=== PATIENT | female | born 1995 | race Caucasian/White ===

== ENCOUNTER 2017-12-04 00:51 | Emergency (ER) | payer OTHER ==
[2017-12-04 02:28] VITALS: BMI 26.6
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
[2017-12-04] MEDS ORDERED: ACETAMINOPHEN 1000 MG/100 ML VIAL (NON FORMULARY) IVPB ONE (02:50)
[2017-12-04] MEDS ORDERED: ACETAMINOPHEN 325 MG TABLET (FP) ONE (03:03)
[2017-12-04] MEDS ORDERED: ACETAMINOPHEN 500 MG TABLET (FP) PO ONE (03:08)
[2017-12-04] MEDS ORDERED: DIPHTH,PERTUSS(ACELL),TET 0.5 ML DISP.SYRIN IM ONE (03:12)
[2017-12-04] MEDS ORDERED: CLINDAMYCIN 900 MG PREMIX IVPB 900 MG/50 ML BAG IVPB ONE ×2 (03:28→03:51)
[2017-12-04 03:55] LABS: BASO % 0.3 % (0-2.0); EOS % 0.6 % (0-4.5); HEMATOCRIT 35.8 % (32.4-45.2); HEMOGLOBIN 11.8 GM/dL (10.7-15.3); LYMPH % 25.6 % (8-40); MCH 26.9 pg (25.7-33.7); MEAN CELL VOLUME 81.6 fl (80-96); MEAN PLT VOLUME 7.8 fl (7.5-11.1); MONO % 8.3 % (3.8-10.2); NEUT % 65.2 % (42.8-82.8); PLATELET COUNT 287 K/MM3 (134-434); RBC 4.39 M/mm3 (3.60-5.2); RDW 14.3 % (11.6-15.6); WHITE BLOOD COUNT 9.7 K/mm3 (4.0-10.0)
[2017-12-04 04:33] LABS: ALBUMIN 3.6 g/dl (3.4-5.0); ALK PHOS 75 U/L (45-117); ANION GAP 12 (8-16); BILIRUBIN,TOTAL 0.2 mg/dL (0.2-1.0); BLOOD UREA NITROGEN 7 mg/dL (7-18); CALCIUM 8.8 mg/dL (8.5-10.1); CHLORIDE 104 mmol/L (98-107); CO2 26 mmol/L (21-32); CREATININE 0.6 mg/dL (0.55-1.02); GLUCOSE,RANDOM 85 mg/dL (74-106); POTASSIUM 3.5 mmol/L (3.5-5.1); SGOT/AST 21 U/L (15-37); SGPT/ALT 28 U/L (12-78); SODIUM 142 mmol/L (136-145); TOT PROT 6.9 g/dl (6.4-8.2)
[2017-12-04] MEDS ORDERED: morphine CARPU-JECT 4 MG/1 ML DISP.SYRIN IVPUSH ONE (05:06)
[2017-12-04] MEDS ORDERED: LIDOCAINE HCL 1%, 10 MG/ML (20ML VIAL) ONE (05:07)
[2017-12-04] MEDS ORDERED: morphine SULFATE 4 MG/ML VIAL ONE (05:08)
[2017-12-04] MEDS ORDERED: MIDAZOLAM HCL 2 MG/2 ML SINGLE DOSE VIAL IVPUSH ONE (06:12)
[2017-12-04] MEDS ORDERED: MIDAZOLAM HCL 2 MG/2 ML SINGLE DOSE VIAL ONE ×3 (06:15→06:44)
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
[2017-12-04] MEDS ORDERED: KETAMINE HCL 200 MG/20 ML VIAL ONE (06:55)
[2017-12-04 07:15] VITALS: TEMP 2
[2017-12-04] MEDS ORDERED: MIDAZOLAM HCL 10 MG/10 ML VIAL IVPUSH ONE (07:42)
[2017-12-04] MEDS ORDERED: KETAMINE HCL 500 MG/10 ML VIAL IV ONE (07:42)
[2017-12-04 09:05] VITALS: BP 109/67; PULSE 79
== END 2017-12-04 09:05 | disposition home or self-care (01) ==
LOC: JER 00:51
PROC: 0HQ2XZZ Repair Right Ear Skin, External Approach (ICD-10-PCS; principal; 2017-12-04)
PROC: 3E0234Z Introduction of Serum, Toxoid and Vaccine into Muscle, Percutaneous Approach (ICD-10-PCS; 2017-12-04)
PROC: 3E03329 Introduction of Other Anti-infective into Peripheral Vein, Percutaneous Approach (ICD-10-PCS; 2017-12-04)
PROC: 3E033NZ Introduction of Analgesics, Hypnotics, Sedatives into Peripheral Vein, Percutaneous Approach (ICD-10-PCS; 2017-12-04)
PROC: 3E033NZ Introduction of Analgesics, Hypnotics, Sedatives into Peripheral Vein, Percutaneous Approach (ICD-10-PCS; 2017-12-04)
PROC: 3E033GC Introduction of Other Therapeutic Substance into Peripheral Vein, Percutaneous Approach (ICD-10-PCS; 2017-12-04)
PROC: 3E033GC Introduction of Other Therapeutic Substance into Peripheral Vein, Percutaneous Approach (ICD-10-PCS; 2017-12-04)
DX: S01.311A Laceration without foreign body of right ear, initial encounter (principal); G44.309 Post-traumatic headache, unspecified, not intractable; W51.XXXA Accidental striking against or bumped into by another person, initial encounter; W22.8XXA Striking against or struck by other objects, initial encounter; Y93.89 Activity, other specified; Y92.59 Other trade areas as the place of occurrence of the external cause; Y99.8 Other external cause status
CPT/HCPCS: 12013; 36415; 70450-TC; 70486-TC; 80053; 84703; 85025; 90471; 90715; 96365; 96372; 96375; 99283-25

== ENCOUNTER 2017-12-25 15:52 | Inpatient (IN) | payer OTHER ==
[2017-12-25 16:33] VITALS: BMI 31.5
--- NOTE | 2017-12-25 19:41 | HP ---
COWS - Scale Resting Pulse: 1= [place] 81-100 Sweatin= Chills/Flushing Restless Observation: 1= Difficult to Sit Still Pupil Size: 0= Normal to Room Light Bone or Joint Aches: 1= Mild Discomfort Runny Nose/ Eye Tearin= Constantly Teary/Runny GI Upset > 30mins: 2= Nausea/Diarrhea Tremor Observation: 1= Tremor [place], Not Seen Yawning Observation: 0= None Anxiety or Irritability: 0= None Goose Flesh Skin: 3=Piloerection COWS Score: 14 Admission [facility] - HPI Chief Complaint: Opioid withdrawal symptoms "I am here to detox from oxys " Allergies/Adverse Reactions: Allergies Allergy/AdvReac Type Severity Reaction Status Date / Time shellfish derived Allergy Swelling Verified 12/25/17 19:22 History of Present Illness: 22 yo female with hx of nicotine, opioid, and marijuana dependence is here seeking detox. PMHX: asthma, stitches on right ear injury, anxiety, insomnia. Denies suicidal / homicidal ideation or suicide attempts. Reports no prior detox treatment and this is her first time seeking assistance. Reports no significant period of sobriety. Denies hx of seizures or black outs. - Ebola screening Have you traveled outside of the country in the last 21 days: No Have you had contact with anyone from an Ebola affected area: No Have you been sick,other than usual withdrawal symptoms: No Do you have a fever: No - Review of Systems Constitutional: Chills, Loss of Appetite, Changes in sleep, Weakness, Unintentional Wgt. Loss (20 lbs loss over the past two months) EENT: reports: No Symptoms Reported Respiratory: reports: No Symptoms reported Cardiac: reports: No Symptoms Reported GI: reports: Diarrhea (Bm x 4 today), Nausea, Poor Appetite, Poor Fluid Intake, Abdominal cramping : reports: No Symptoms Reported Musculoskeletal: reports: Back Pain, Joint Pain Integumentary: reports: No Symptoms Reported Endocrine: reports: Excessive Sweating, Increased Thirst Hematology: reports: No Symptoms Reported Psychiatric: reports: Orientated x3, Anxious Other Systems: Reviewed and Negative Patient History - Patient Medical History Hx Anemia: No Hx Asthma: Yes Hx Chronic Obstructive Pulmonary Disease (COPD): No Hx Cancer: No Hx Cardiac Disorders: Yes (heart murmur as a child) Hx Congestive Heart Failure: No Hx Hypertension: No Hx Hypercholesterolemia: No Hx Pacemaker: No HX Cerebrovascular Accident: No Hx Seizures: No Hx Dementia: No Hx Diabetes: No Hx Gastrointestinal Disorders: No Hx Liver Disease: No Hx Genitourinary Disorders: No Hx Sexually Transmitted Disorders: No Hx Renal Disease (ESRD): No Hx Thyroid Disease: No Hx Human Immunodeficiency Virus (HIV): No Hx Hepatitis C: No Hx Depression: No Hx Suicide Attempt: No Hx Bipolar Disorder: No Hx Schizophrenia: No - Patient Surgical History Past Surgical History: Yes Hx Neurologic Surgery: No Hx Cataract Extraction: No Hx Cardiac Surgery: No Hx Lung Surgery: No Hx Breast Surgery: No Hx Breast Biopsy: No Hx Abdominal Surgery: No Hx Appendectomy: Yes Hx Cholecystectomy: No Hx Genitourinary Surgery: No Hx Section: No Hx Orthopedic Surgery: No Anesthesia Reaction: No - PPD History Previous Implant?: Yes Documented Results: Negative w/o proof Implanted On Prior R Admission?: No PPD to be Administered?: Yes - Reproductive History Patient is a Female of Child Bearing Age (11 -55 yrs old): Yes Last Menstrual Period: 11/27/17 Patient : No - Smoking Cessation Smoking history: Current every day smoker Have you smoked in the past 12 months: Yes Aproximately how many cigarettes per day: 10 Hx Chewing Tobacco Use: No Initiated information on smoking cessation: Yes 'Breaking Loose' booklet given: 12/25/17 - Substance & Tx. History Hx Alcohol Use: No Hx Substance Use: Yes Substance Use Type: Marijuana, Opiates Hx Substance Use Treatment: No - Substances Abused Oxycodone Route: Oral Frequency: Daily Amount used: 20 tabs. (30 mg.) Age of first use: 21 Date of Last Use: 12/25/17 Marijuana Route: Smoking Frequency: 1-2 times per week Amount used: $10 Age of first use: 15 Date of Last Use: 12/24/17 Family Disease History - Family Disease History Family Disease History: Heart Disease: Father (alive, HTN), Other: Father, Mother (alive and well) Admission Physical Exam BHS - Vital Signs Vital Signs: Vital Signs - 24 hr 12/25/17 16:31 Temperature 98.9 F Pulse Rate 88 Respiratory 18 Rate Blood Pressure 137/87 - Physical General Appearance: Yes: Appropriately Dressed, Obese, Sweating, Anxious HEENTM: Yes: EOMI, Hearing grossly Normal, Normal ENT Inspection, Normocephalic , Normal Voice, CHAD, Pharynx Normal, Tm's normal Respiratory: Yes: Chest Non-Tender, Lungs Clear, Normal Breath Sounds, No Respiratory Distress, No Accessory Muscle Use Neck: Yes: No masses,lesions,Nodules, Trachea in good position Breast: Yes: Breast Exam Deferred Cardiology: Yes: Regular Rhythm, Regular Rate, Murmur Abdominal: Yes: Normal Bowel Sounds, Non Tender, Flat, Soft Genitourinary: Yes: Within Normal Limits Back: Yes: Normal Inspection Musculoskeletal: Yes: full range of Motion, Gait Steady, Pelvis Stable, Back pain Extremities: Yes: Normal Capillary Refill, Normal Inspection, Normal Range of Motion, Non-Tender Neurological: Yes: leather case finisher II-XII NML intact, Fully Oriented, Alert, Motor Strength 5/5, Depressed Affect Integumentary: Yes: Normal Color, Warm, Diaphoresis Lymphatic: Yes: Within Normal Limits - Diagnostic (1) Back pain Current Visit: Yes Status: Acute Qualifiers: Back pain location: low back pain Chronicity: acute Back pain laterality : midline (2) Opioid dependence with withdrawal Current Visit: Yes Status: Acute (3) Marijuana dependence Current Visit: Yes Status: Acute (4) Obesity (BMI 30.0-34.9) Current Visit: Yes Status: Chronic (5) Nicotine dependence Current Visit: Yes Status: Acute Qualifiers: Nicotine product type: cigarettes (6) Murmur Current Visit: Yes Status: Chronic (7) Laceration of right ear Current Visit: No Status: Acute Qualifiers: Encounter type: subsequent encounter Qualified Code(s): S01.311D - Laceration without foreign body of right ear, subsequent encounter Cleared for Admission [facility] - Detox or Rehab [facility] Level of Care: Medically Managed Detox Regimen/Protocol: Methadone [facility] Breath Alcohol Content Breath Alcohol Content: 0 Urine Pregancy Test - Result Urine Test Results: Negative- NO Line Present Urine Drug Screen - Results Drug Screen Negative: No Urine Drug Screen Results: THC-Marijuana, SHAHEEN-Cocaine, OXY-Oxycodone
[2017-12-25] MEDS ORDERED: MENTHOL/PHENOL 1 EACH UD MM PRN (19:46)
[2017-12-25] MEDS ORDERED: MAGNESIUM HYDROX 2400MG/30ML ORAL SUSPENSION 30 ML CUP PO PRN (19:46)
[2017-12-25] MEDS ORDERED: MAGNESIUM CITRATE 300 ML BOTTLE PO PRN (19:46)
[2017-12-25] MEDS ORDERED: P-EPHED 60MG/TRIPROLIDI 2.5MG TABLET PO PRN (19:46)
[2017-12-25] MEDS ORDERED: METHADONE HCL 10 MG TABLET (FOR DETOX USE ONLY) PO ONE ×2 (19:46→23:00)
[2017-12-25] MEDS ORDERED: ALBUTEROL SO4 18 GM HFA INHALER IH PRN (19:46)
[2017-12-25] MEDS ORDERED: LOPERAMIDE HCL 2 MG CAPSULE PO PRN (19:46)
[2017-12-25] MEDS ORDERED: guaiFENesin/D-METHORPHAN HB 10 ML UNIT-DOSE CUPS PO PRN (19:46)
[2017-12-25] MEDS ORDERED: MAG HYDROX/AL HYDROX/SIMETH 30 ML UNIT-DOSE CUP PO PRN (19:46)
[2017-12-25] MEDS ORDERED: ALBUTEROL SO4 2.5/IPRATROPIUM 0.5 INH SOL 3 ML VIAL.NEB. NEB PRN (19:49)
[2017-12-25] MEDS: diazePAM 5 MG TABLET PO PRN (20:50)
[2017-12-25] MEDS: MELATONIN 5 MG TABLETS PO PRN (22:24)
[2017-12-25] MEDS: THIAMINE HCL 100 MG TABLET (FP) PO SCH (22:24)
[2017-12-26] MEDS: diazePAM 5 MG TABLET PO PRN ×4 (01:27→19:54)
[2017-12-26 09:57] LABS: HEMATOCRIT 35.7 % (32.4-45.2); HEMOGLOBIN 11.6 GM/dL (10.7-15.3); MCH 26.9 pg (25.7-33.7); MCHC 32.6 g/dl (32.0-36.0); MEAN CELL VOLUME 82.5 fl (80-96); MEAN PLT VOLUME 8.5 fl (7.5-11.1); PLATELET COUNT 277 K/MM3 (134-434); RBC 4.32 M/mm3 (3.60-5.2); RDW 14.6 % (11.6-15.6); WHITE BLOOD COUNT 8.4 K/mm3 (4.0-10.0)
[2017-12-26] MEDS ORDERED: METHADONE HCL 10 MG TABLET (FOR DETOX USE ONLY) PO ONE (10:00)
[2017-12-26 10:09] LABS: ALBUMIN 3.4 g/dl (3.4-5.0); ANION GAP 7 (8-16); BLOOD UREA NITROGEN 8 mg/dL (7-18); CALCIUM 8.6 mg/dL (8.5-10.1); CHLORIDE 108 mmol/L (98-107); CO2 27 mmol/L (21-32); CREATININE 0.6 mg/dL (0.55-1.02); GLUCOSE,RANDOM 80 mg/dL (74-106); POTASSIUM 3.9 mmol/L (3.5-5.1); SGOT/AST 14 U/L (15-37); SGPT/ALT 28 U/L (12-78); SODIUM 142 mmol/L (136-145)
[2017-12-26 10:11] LABS: ALK PHOS 71 U/L (45-117); BILIRUBIN,TOTAL 0.5 mg/dL (0.2-1.0); TOT PROT 6.6 g/dl (6.4-8.2)
--- NOTE | 2017-12-26 10:14 | EKG ---
Test Reason : Blood Pressure : / mmHG Vent. Rate : 068 BPM Atrial Rate : 068 BPM P-R Int : 152 ms QRS Dur : 090 ms QT Int : 376 ms P-R-T Axes : 047 055 017 degrees QTc Int : 399 ms NORMAL SINUS RHYTHM NORMAL ECG WHEN COMPARED WITH ECG OF 25-DEC-2017 20:53, NO SIGNIFICANT CHANGE WAS FOUND Confirmed by Diony Martinez MD ([id number]) on 12/26/2017 10:13:46 AM Referred By: Confirmed By:Diony Martinez MD
--- NOTE | 2017-12-26 10:14 | EKG ---
Test Reason : Blood Pressure : / mmHG Vent. Rate : 082 BPM Atrial Rate : 082 BPM P-R Int : 158 ms QRS Dur : 082 ms QT Int : 360 ms P-R-T Axes : 058 055 010 degrees QTc Int : 420 ms NORMAL SINUS RHYTHM NONSPECIFIC T WAVE ABNORMALITY ABNORMAL ECG NO PREVIOUS ECGS AVAILABLE Confirmed by Diony Martinez MD ([id number]) on 12/26/2017 10:14:23 AM Referred By: Confirmed By:Diony Martinez MD
[2017-12-26] MEDS: PRENATAL VITAMINS W/ FOLIC ACID TABLET (FP) PO SCH (10:37)
[2017-12-26] MEDS: NICOTINE 14 MG/24 HOURS TOPICAL PATCH TD SCH (10:38)
--- NOTE | 2017-12-26 11:40 | CONSULT ---
[facility] - Data Date of interview: 12/26/17 [facility] Identifying data: Pt. is a 22 year old single female, without kids, unemployed and currently living with boyfriend. This is patient's first admission to detox. Pt. admitted to [facility] for opioid dependence. Substance Abuse History: Following information confirmed with Ms. Yuly Torres: - Smoking Cessation. Smoking history: Current every day smoker. Have you smoked in the past 12 months: Yes. Aproximately how many cigarettes per day: 10. Hx Chewing Tobacco Use: No. Initiated information on smoking cessation: Yes. ' Breaking Loose' booklet given: 12/25/17. - Substance & Tx. History. Hx Alcohol Use: No. Hx Substance Use: Yes. Substance Use Type: Marijuana, Opiates. Hx Substance Use Treatment: No. - Substances Abused. Oxycodone. Route: Oral. Frequency: Daily. Amount used: 20 tabs. (30 mg.). Age of first use: 21. Date of Last Use: 12/25/17. Marijuana. Route: Smoking. Frequency : 1-2 times per week. Amount used: $10. Age of first use: 15. Date of Last Use: 12/24/17 Medical History: Appendectomy, Heart Murmur as a child, Asthma Psychiatric History: Pt. denies h/o psychiatric hospitalization, outpatient care and suicide attempt. Physical/Sexual Abuse/Trauma History: Denies. Mental Status Exam - Mental Status Exam Alert and Oriented to: Time, Place, Person Cognitive Function: Good Patient Appearance: Well Groomed Mood: Withdrawn, Euthymic Affect: Mood Congruent Patient Behavior: Fatigued, Cooperative Speech Pattern: Appropriate Voice Loudness: Normal Thought Process: Goal Oriented Thought Disorder: Not Present Hallucinations: Denies Suicidal Ideation: Denies Homicidal Ideation: Denies Insight/Judgement: Poor Sleep: Poorly Appetite: Fair Muscle strength/Tone: Normal Gait/Station: Normal Psychiatric Findings - Problem List (Flatgap 1, 2,3) (1) Insomnia Current Visit: Yes Status: Acute (2) Marijuana dependence Current Visit: Yes Status: Acute (3) Nicotine dependence Current Visit: Yes Status: Acute Qualifiers: Nicotine product type: cigarettes (4) Opioid dependence with withdrawal Current Visit: Yes Status: Acute - Initial Treatment Plan Initial Treatment Plan: Psychoeducation provided. Detoxification in progress. Geovannyryl 50mg prn for insomnia ordered. Benefits and side effects discussed. Verbal consent given. Will continue to monitor patient.
--- NOTE | 2017-12-26 14:04 | PN ---
S COWS - Scale Resting Pulse: 0= [place] 80 or Below Sweatin= Chills/Flushing Restless Observation: 3= Extraneous Movement Pupil Size: 1= Pupils >than Normal Bone or Joint Aches: 2= Severe Diffuse Aches Runny Nose/ Eye Tearin= Runny Nose/Eyes GI Upset > 30mins: 2= Nausea/Diarrhea Tremor Observation of Outstretched Hands: 2= Slight Tremor Visible Yawning Observation: 2= >3x During Session Anxiety or Irritability: 2=Irritable/Anxious Goose Flesh Skin: 0=Smooth Skin COWS Score: 17 S Progress Note (SOAP) Subjective: ALERT,IRRITABLE,ANXIOUS,INTERRUPTED SLEEP,TREMOR,PAIN IN THE BODY AND BACK Objective: 12/26/17 14:03 Vital Signs Temperature 97.7 F 12/26/17 11:57 Pulse Rate 72 12/26/17 11:57 Respiratory Rate 20 12/26/17 11:57 Blood Pressure 121/67 12/26/17 11:57 O2 Sat by Pulse Oximetry (%) EKG NSR,NORMAL ECG Laboratory Last Values WBC 8.4 K/mm3 (4.0-10.0) 12/26/17 08:00 RBC 4.32 M/mm3 (3.60-5.2) 12/26/17 08:00 Hgb 11.6 GM/dL (10.7-15.3) 12/26/17 08:00 Hct 35.7 % (32.4-45.2) 12/26/17 08:00 MCV 82.5 fl (80-96) 12/26/17 08:00 MCH 26.9 pg (25.7-33.7) 12/26/17 08:00 MCHC 32.6 g/dl (32.0-36.0) 12/26/17 08:00 RDW 14.6 % (11.6-15.6) 12/26/17 08:00 Plt Count 277 K/MM3 (134-434) 12/26/17 08:00 MPV 8.5 fl (7.5-11.1) 12/26/17 08:00 Sodium 142 mmol/L (136-145) 12/26/17 08:00 Potassium 3.9 mmol/L (3.5-5.1) 12/26/17 08:00 Chloride 108 mmol/L (98-107) H 12/26/17 08:00 Carbon Dioxide 27 mmol/L (21-32) 12/26/17 08:00 Anion Gap 7 (8-16) L 12/26/17 08:00 BUN 8 mg/dL (7-18) 12/26/17 08:00 Creatinine 0.6 mg/dL (0.55-1.02) 12/26/17 08:00 Creat Clearance w eGFR > 60 (>60) 12/26/17 08:00 Random Glucose 80 mg/dL (74-106) 12/26/17 08:00 Calcium 8.6 mg/dL (8.5-10.1) 12/26/17 08:00 Total Bilirubin 0.5 mg/dL (0.2-1.0) D 12/26/17 08:00 AST 14 U/L (15-37) L 12/26/17 08:00 ALT 28 U/L (12-78) 12/26/17 08:00 Alkaline Phosphatase 71 U/L (45-117) 12/26/17 08:00 Total Protein 6.6 g/dl (6.4-8.2) 12/26/17 08:00 Albumin 3.4 g/dl (3.4-5.0) 12/26/17 08:00 HIV 1&2 Antibody Screen Negative 12/26/17 09:00 HIV P24 Antigen Negative 12/26/17 09:00 12/26/17 14:04 RPR PENDING Assessment: 12/26/17 14:04 WITHDRAWAL SYMPTOM Plan: CONTINUE DETOX
[2017-12-26 18:21] LABS: URINE APPEARANCE TURBID; URINE BILIRUBIN NEGATIVE (<2.0 mg/dL); URINE BLOOD NEGATIVE (NEGATIVE); URINE COLOR YELLOW; URINE GLUCOSE (UA) NEGATIVE (NEGATIVE); URINE KETONE TRACE (NEGATIVE); URINE NITRITE NEGATIVE (NEGATIVE); URINE PROTEIN NEGATIVE (NEGATIVE)
[2017-12-26 18:25] LABS: URINE LEUK ESTERASE 1+ (NEGATIVE)
[2017-12-26 19:16] LABS: CALCIUM OXALATE CRYSTALS MODERATE /hpf (NONE SEEN); EPI CELLS FEW /HPF (FEW); URINE MUCUS MANY
[2017-12-26] MEDS ORDERED: diphenhydrAMINE HCL 50 MG CAPSULE PO PRN (22:00)
[2017-12-26] MEDS: hydrOXYzine PAMOATE 50 MG CAPSULE (FP) PO PRN (22:35)
[2017-12-26] MEDS: THIAMINE HCL 100 MG TABLET (FP) PO SCH (22:35)
[2017-12-26] MEDS: MELATONIN 5 MG TABLETS PO PRN (22:36)
[2017-12-27] MEDS ORDERED: METHADONE HCL 5 MG TABLET (FOR DETOX USE ONLY) PO ONE (10:00)
[2017-12-27] MEDS: PRENATAL VITAMINS W/ FOLIC ACID TABLET (FP) PO SCH (10:16)
[2017-12-27] MEDS: NICOTINE 14 MG/24 HOURS TOPICAL PATCH TD SCH (10:19)
--- NOTE | 2017-12-27 11:43 | PN ---
BHS COWS - Scale Resting Pulse: 0= [place] 80 or Below Sweatin= Chills/Flushing Restless Observation: 1= Difficult to Sit Still Pupil Size: 1= Pupils >than Normal Bone or Joint Aches: 2= Severe Diffuse Aches Runny Nose/ Eye Tearin= Nasal Congestion GI Upset > 30mins: 2= Nausea/Diarrhea Tremor Observation of Outstretched Hands: 2= Slight Tremor Visible Yawning Observation: 2= >3x During Session Anxiety or Irritability: 2=Irritable/Anxious Goose Flesh Skin: 0=Smooth Skin COWS Score: 14 BHS Progress Note (SOAP) Subjective: sweat tremor body ache restlessness anxiety irritable Objective: 12/27/17 11:40 Vital Signs Temperature 98.1 F 12/27/17 09:38 Pulse Rate 76 12/27/17 09:38 Respiratory Rate 18 12/27/17 09:38 Blood Pressure 105/54 12/27/17 09:38 O2 Sat by Pulse Oximetry (%) Laboratory Last Values WBC 8.4 K/mm3 (4.0-10.0) 12/26/17 08:00 RBC 4.32 M/mm3 (3.60-5.2) 12/26/17 08:00 Hgb 11.6 GM/dL (10.7-15.3) 12/26/17 08:00 Hct 35.7 % (32.4-45.2) 12/26/17 08:00 MCV 82.5 fl (80-96) 12/26/17 08:00 MCH 26.9 pg (25.7-33.7) 12/26/17 08:00 MCHC 32.6 g/dl (32.0-36.0) 12/26/17 08:00 RDW 14.6 % (11.6-15.6) 12/26/17 08:00 Plt Count 277 K/MM3 (134-434) 12/26/17 08:00 MPV 8.5 fl (7.5-11.1) 12/26/17 08:00 Sodium 142 mmol/L (136-145) 12/26/17 08:00 Potassium 3.9 mmol/L (3.5-5.1) 12/26/17 08:00 Chloride 108 mmol/L (98-107) H 12/26/17 08:00 Carbon Dioxide 27 mmol/L (21-32) 12/26/17 08:00 Anion Gap 7 (8-16) L 12/26/17 08:00 BUN 8 mg/dL (7-18) 12/26/17 08:00 Creatinine 0.6 mg/dL (0.55-1.02) 12/26/17 08:00 Creat Clearance w eGFR > 60 (>60) 12/26/17 08:00 Random Glucose 80 mg/dL (74-106) 12/26/17 08:00 Calcium 8.6 mg/dL (8.5-10.1) 12/26/17 08:00 Total Bilirubin 0.5 mg/dL (0.2-1.0) D 12/26/17 08:00 AST 14 U/L (15-37) L 12/26/17 08:00 ALT 28 U/L (12-78) 12/26/17 08:00 Alkaline Phosphatase 71 U/L (45-117) 12/26/17 08:00 Total Protein 6.6 g/dl (6.4-8.2) 12/26/17 08:00 Albumin 3.4 g/dl (3.4-5.0) 12/26/17 08:00 Urine Color Yellow 12/25/17 17:00 Urine Appearance Turbid 12/25/17 17:00 Urine pH 5.0 (5.0-8.0) 12/25/17 17:00 Ur Specific [place] 1.029 (1.001-1.035) 12/25/17 17:00 Urine Protein Negative (NEGATIVE) 12/25/17 17:00 Urine Glucose (UA) Negative (NEGATIVE) 12/25/17 17:00 Urine Ketones Trace (NEGATIVE) H 12/25/17 17:00 Urine Blood Negative (NEGATIVE) 12/25/17 17:00 Urine Nitrite Negative (NEGATIVE) 12/25/17 17:00 Urine Bilirubin Negative (<2.0 mg/dL) 12/25/17 17:00 Urine Urobilinogen 2.0 mg/dL (0.2-1.0) H 12/25/17 17:00 Ur Leukocyte Esterase 1+ (NEGATIVE) H 12/25/17 17:00 Urine WBC (Auto) 2 /hpf (3-5) 12/25/17 17:00 Urine RBC (Auto) 2 /hpf (0-3) 12/25/17 17:00 Ur Epithelial Cells Few /HPF (FEW) 12/25/17 17:00 Calcium Oxalate Crystal Moderate /hpf (NONE SEEN) 12/25/17 17:00 Urine Mucus Many 12/25/17 17:00 HIV 1&2 Antibody Screen Negative 12/26/17 09:00 HIV P24 Antigen Negative 12/26/17 09:00 lab noted Assessment: 12/27/17 11:42 withdrawal sx Plan: continue detox
[2017-12-27] MEDS: diazePAM 5 MG TABLET PO PRN ×3 (14:06→22:54)
[2017-12-27] MEDS: IBUPROFEN 400 MG TABLET (FP) PO PRN ×2 (14:07→20:34)
[2017-12-27] MEDS: hydrOXYzine PAMOATE 50 MG CAPSULE (FP) PO PRN (20:31)
[2017-12-27] MEDS: ACETAMINOPHEN 325 MG TABLET (FP) PO PRN (21:25)
[2017-12-27] MEDS: THIAMINE HCL 100 MG TABLET (FP) PO SCH (22:13)
[2017-12-27] MEDS: MELATONIN 5 MG TABLETS PO PRN (22:13)
[2017-12-28] MEDS: diazePAM 5 MG TABLET PO PRN ×3 (05:46→14:31)
[2017-12-28] MEDS: IBUPROFEN 400 MG TABLET (FP) PO PRN ×2 (05:55→13:51)
--- NOTE | 2017-12-28 09:35 | PN ---
BHS Progress Note (SOAP) Subjective: nasuea, sweats, interrupte dsleep ,anxiety, melatonin not effectivve sleep aid, needs stitches in ear remobved. Objective: 12/28/17 09:34 Vital Signs - 24 hr 12/27/17 12/27/17 12/27/17 09:38 14:05 18:44 Temperature 98.1 F 98.2 F 97.9 F Pulse Rate 76 78 105 H Respiratory 18 18 17 Rate Blood Pressure 105/54 117/69 130/71 12/27/17 12/28/17 12/28/17 23:06 00:30 03:30 Temperature 98.1 F Pulse Rate 90 Respiratory 18 16 18 Rate Blood Pressure 136/73 12/28/17 06:25 Temperature 97.9 F Pulse Rate 68 Respiratory 18 Rate Blood Pressure 108/60 Laboratory Tests 12/25/17 12/26/17 12/26/17 17:00 08:00 08:00 WBC 8.4 RBC 4.32 Hgb 11.6 Hct 35.7 MCV 82.5 MCH 26.9 MCHC 32.6 RDW 14.6 Plt Count 277 MPV 8.5 Sodium 142 Potassium 3.9 Chloride 108 H Carbon Dioxide 27 Anion Gap 7 L BUN 8 Creatinine 0.6 Creat Clearance w eGFR > 60 Random Glucose 80 Calcium 8.6 Total Bilirubin 0.5 D AST 14 L ALT 28 Alkaline Phosphatase 71 Total Protein 6.6 Albumin 3.4 Urine Color Yellow Urine Appearance Turbid Urine pH 5.0 Ur Specific [place] 1.029 Urine Protein Negative Urine Glucose (UA) Negative Urine Ketones Trace H Urine Blood Negative Urine Nitrite Negative Urine Bilirubin Negative Urine Urobilinogen 2.0 H Ur Leukocyte Esterase 1+ H Urine WBC (Auto) 2 Urine RBC (Auto) 2 Ur Epithelial Cells Few Calcium Oxalate Crystal Moderate Urine Mucus Many HIV 1&2 Antibody Screen HIV P24 Antigen 12/26/17 09:00 WBC RBC Hgb Hct MCV MCH MCHC RDW Plt Count MPV Sodium Potassium Chloride Carbon Dioxide Anion Gap BUN Creatinine Creat Clearance w eGFR Random Glucose Calcium Total Bilirubin AST ALT Alkaline Phosphatase Total Protein Albumin Urine Color Urine Appearance Urine pH Ur Specific [place] Urine Protein Urine Glucose (UA) Urine Ketones Urine Blood Urine Nitrite Urine Bilirubin Urine Urobilinogen Ur Leukocyte Esterase Urine WBC (Auto) Urine RBC (Auto) Ur Epithelial Cells Calcium Oxalate Crystal Urine Mucus HIV 1&2 Antibody Screen Negative HIV P24 Antigen Negative Assessment: 12/28/17 09:34 withdrawal sx - cont detox, insomnia ambien ordered as well as melatonin, suture removal kit requested to remove stitiches prior to discharge
[2017-12-28] MEDS ORDERED: METHADONE HCL 5 MG TABLET (FOR DETOX USE ONLY) PO ONE (10:00)
[2017-12-28] MEDS: PRENATAL VITAMINS W/ FOLIC ACID TABLET (FP) PO SCH (10:03)
[2017-12-28] MEDS: NICOTINE POLACRILEX 2 MG GUM BC PRN ×2 (10:04→14:31)
[2017-12-28] MEDS: NICOTINE 14 MG/24 HOURS TOPICAL PATCH TD SCH (10:04)
[2017-12-28] MEDS: ZOLPIDEM TARTRATE 5 MG TABLET PO PRN (22:12)
[2017-12-28] MEDS: THIAMINE HCL 100 MG TABLET (FP) PO SCH (22:12)
[2017-12-28] MEDS: MELATONIN 5 MG TABLETS PO PRN (22:13)
[2017-12-28] MEDS: hydrOXYzine PAMOATE 25 MG CAPSULE (FP) PO PRN (22:14)
[2017-12-28] MEDS: ACETAMINOPHEN 325 MG TABLET (FP) PO PRN (22:46)
--- NOTE | 2017-12-29 08:59 | PN ---
[facility] Progress Note (SOAP) Subjective: nausea, sweats, interrupted sleep, anxiety, body aches, woud like sutures to be removed today prior to discharge Objective: 12/29/17 08:57 Vital Signs - 24 hr 12/28/17 12/28/17 12/28/17 10:00 10:27 15:11 Temperature 99.1 F 97.7 F 98.4 F Pulse Rate 93 H 71 102 H Respiratory 20 18 20 Rate Blood Pressure 139/52 126/72 119/75 12/28/17 12/29/17 12/29/17 18:06 00:30 03:30 Temperature 98.4 F Pulse Rate 96 H Respiratory 16 16 18 Rate Blood Pressure 132/69 Laboratory Tests 12/25/17 12/26/17 12/26/17 17:00 08:00 08:00 WBC 8.4 RBC 4.32 Hgb 11.6 Hct 35.7 MCV 82.5 MCH 26.9 MCHC 32.6 RDW 14.6 Plt Count 277 MPV 8.5 Sodium 142 Potassium 3.9 Chloride 108 H Carbon Dioxide 27 Anion Gap 7 L BUN 8 Creatinine 0.6 Creat Clearance w eGFR > 60 Random Glucose 80 Calcium 8.6 Total Bilirubin 0.5 D AST 14 L ALT 28 Alkaline Phosphatase 71 Total Protein 6.6 Albumin 3.4 Urine Color Yellow Urine Appearance Turbid Urine pH 5.0 Ur Specific [place] 1.029 Urine Protein Negative Urine Glucose (UA) Negative Urine Ketones Trace H Urine Blood Negative Urine Nitrite Negative Urine Bilirubin Negative Urine Urobilinogen 2.0 H Ur Leukocyte Esterase 1+ H Urine WBC (Auto) 2 Urine RBC (Auto) 2 Ur Epithelial Cells Few Calcium Oxalate Crystal Moderate Urine Mucus Many RPR Titer HIV 1&2 Antibody Screen HIV P24 Antigen 12/26/17 12/26/17 08:00 09:00 WBC RBC Hgb Hct MCV MCH MCHC RDW Plt Count MPV Sodium Potassium Chloride Carbon Dioxide Anion Gap BUN Creatinine Creat Clearance w eGFR Random Glucose Calcium Total Bilirubin AST ALT Alkaline Phosphatase Total Protein Albumin Urine Color Urine Appearance Urine pH Ur Specific [place] Urine Protein Urine Glucose (UA) Urine Ketones Urine Blood Urine Nitrite Urine Bilirubin Urine Urobilinogen Ur Leukocyte Esterase Urine WBC (Auto) Urine RBC (Auto) Ur Epithelial Cells Calcium Oxalate Crystal Urine Mucus RPR Titer Nonreactive HIV 1&2 Antibody Screen Negative HIV P24 Antigen Negative Assessment: 12/29/17 08:58 withdrawal sx - cont detox, symptomatic relief of withdrawal , remove sutures today.
[2017-12-29] MEDS ORDERED: METHADONE HCL 10 MG TABLET (FOR DETOX USE ONLY) PO ONE (10:00)
[2017-12-29] MEDS: NAPROXEN 500 MG TABLET (FP) PO SCH ×2 (10:12→22:27)
[2017-12-29] MEDS: PRENATAL VITAMINS W/ FOLIC ACID TABLET (FP) PO SCH (10:13)
[2017-12-29] MEDS: NICOTINE 14 MG/24 HOURS TOPICAL PATCH TD SCH (10:13)
[2017-12-29] MEDS: PANTOPRAZOLE 40 MG TABLET (FP) PO SCH (10:13)
[2017-12-29] MEDS: cloNIDine HCL 0.1 MG TABLET PO SCH ×2 (10:13→22:27)
[2017-12-29] MEDS: NICOTINE POLACRILEX 2 MG GUM BC PRN ×2 (10:15→22:30)
--- NOTE | 2017-12-29 11:14 | PN ---
[facility] Progress Note Note: SUTURES 5 STITCHES REMOVED FROM RIGHT EAR,OLD SCAB FORMATION,CLEAN WITH NSS, WOUND HEALED
[2017-12-29] MEDS: CYCLOBENZAPRINE HCL 10 MG TABLET (FP) PO SCH ×2 (13:06→22:27)
[2017-12-29] MEDS: GABAPENTIN 100 MG CAPSULE (FP) PO SCH ×2 (13:06→22:27)
[2017-12-29] MEDS: hydrOXYzine PAMOATE 25 MG CAPSULE (FP) PO PRN ×2 (14:46→20:22)
[2017-12-29] MEDS: ACETAMINOPHEN 325 MG TABLET (FP) PO PRN (18:17)
[2017-12-29] MEDS: MELATONIN 5 MG TABLETS PO PRN (22:25)
[2017-12-29] MEDS: THIAMINE HCL 100 MG TABLET (FP) PO SCH (22:27)
[2017-12-29] MEDS: ZOLPIDEM TARTRATE 5 MG TABLET PO PRN (22:27)
[2017-12-30] MEDS: CYCLOBENZAPRINE HCL 10 MG TABLET (FP) PO SCH (05:58)
[2017-12-30] MEDS: GABAPENTIN 100 MG CAPSULE (FP) PO SCH (05:58)
[2017-12-30] MEDS ORDERED: METHADONE HCL 5 MG TABLET (FOR DETOX USE ONLY) PO ONE (06:00)
[2017-12-30 06:26] VITALS: BP 107/56; PULSE 74; TEMP 97.9
[2017-12-30] MEDS: NAPROXEN 500 MG TABLET (FP) PO SCH (09:51)
[2017-12-30] MEDS: cloNIDine HCL 0.1 MG TABLET PO SCH (09:51)
[2017-12-30] MEDS: PRENATAL VITAMINS W/ FOLIC ACID TABLET (FP) PO SCH (09:51)
[2017-12-30] MEDS: NICOTINE 14 MG/24 HOURS TOPICAL PATCH TD SCH (09:52)
[2017-12-30] MEDS: PANTOPRAZOLE 40 MG TABLET (FP) PO SCH (11:31)
--- NOTE | 2017-12-30 13:44 | DS ---
[facility] Detox Discharge Summary Admission Date: 12/25/17 Discharge Date: 12/30/17 - History Present History: Alcohol Dependence, Opioid Dependence Pertinent Past History: 22 year old female with hx of nicotine, opioid, and marijuana dependence, h/o asthma, recent injury to right ear, same healed, stitches removed. - Physical Exam Results Vital Signs: Vital Signs Temperature 97.9 F 12/30/17 06:00 Pulse Rate 74 12/30/17 06:00 Respiratory Rate 18 12/30/17 06:00 Blood Pressure 107/56 12/30/17 06:00 O2 Sat by Pulse Oximetry (%) Pertinent Admission Physical Exam Findings: Withdrawal sx Laboratory Last Values WBC 8.4 K/mm3 (4.0-10.0) 12/26/17 08:00 RBC 4.32 M/mm3 (3.60-5.2) 12/26/17 08:00 Hgb 11.6 GM/dL (10.7-15.3) 12/26/17 08:00 Hct 35.7 % (32.4-45.2) 12/26/17 08:00 MCV 82.5 fl (80-96) 12/26/17 08:00 MCH 26.9 pg (25.7-33.7) 12/26/17 08:00 MCHC 32.6 g/dl (32.0-36.0) 12/26/17 08:00 RDW 14.6 % (11.6-15.6) 12/26/17 08:00 Plt Count 277 K/MM3 (134-434) 12/26/17 08:00 MPV 8.5 fl (7.5-11.1) 12/26/17 08:00 Sodium 142 mmol/L (136-145) 12/26/17 08:00 Potassium 3.9 mmol/L (3.5-5.1) 12/26/17 08:00 Chloride 108 mmol/L (98-107) H 12/26/17 08:00 Carbon Dioxide 27 mmol/L (21-32) 12/26/17 08:00 Anion Gap 7 (8-16) L 12/26/17 08:00 BUN 8 mg/dL (7-18) 12/26/17 08:00 Creatinine 0.6 mg/dL (0.55-1.02) 12/26/17 08:00 Creat Clearance w eGFR > 60 (>60) 12/26/17 08:00 Random Glucose 80 mg/dL (74-106) 12/26/17 08:00 Calcium 8.6 mg/dL (8.5-10.1) 12/26/17 08:00 Total Bilirubin 0.5 mg/dL (0.2-1.0) D 12/26/17 08:00 AST 14 U/L (15-37) L 12/26/17 08:00 ALT 28 U/L (12-78) 12/26/17 08:00 Alkaline Phosphatase 71 U/L (45-117) 12/26/17 08:00 Total Protein 6.6 g/dl (6.4-8.2) 12/26/17 08:00 Albumin 3.4 g/dl (3.4-5.0) 12/26/17 08:00 Urine Color Yellow 12/25/17 17:00 Urine Appearance Turbid 12/25/17 17:00 Urine pH 5.0 (5.0-8.0) 12/25/17 17:00 Ur Specific [place] 1.029 (1.001-1.035) 12/25/17 17:00 Urine Protein Negative (NEGATIVE) 12/25/17 17:00 Urine Glucose (UA) Negative (NEGATIVE) 12/25/17 17:00 Urine Ketones Trace (NEGATIVE) H 12/25/17 17:00 Urine Blood Negative (NEGATIVE) 12/25/17 17:00 Urine Nitrite Negative (NEGATIVE) 12/25/17 17:00 Urine Bilirubin Negative (<2.0 mg/dL) 12/25/17 17:00 Urine Urobilinogen 2.0 mg/dL (0.2-1.0) H 12/25/17 17:00 Ur Leukocyte Esterase 1+ (NEGATIVE) H 12/25/17 17:00 Urine WBC (Auto) 2 /hpf (3-5) 12/25/17 17:00 Urine RBC (Auto) 2 /hpf (0-3) 12/25/17 17:00 Ur Epithelial Cells Few /HPF (FEW) 12/25/17 17:00 Calcium Oxalate Crystal Moderate /hpf (NONE SEEN) 12/25/17 17:00 Urine Mucus Many 12/25/17 17:00 RPR Titer Nonreactive (NONREACTIVE) 12/26/17 08:00 HIV 1&2 Antibody Screen Negative 12/26/17 09:00 HIV P24 Antigen Negative 12/26/17 09:00 Labs noted - Treatment Hospital Course: Detox Protocol Followed, Detoxed Safely, Responded well, Discharged Condition Good - Medication Discharge Medications: Ambulatory Orders Albuterol Sulfate [Proventil HFA Inhaler -] 2 inh PO Q4H PRN #1 [email or web address] 12/29 - Diagnosis (1) Anxiety Status: Acute (2) Back pain Status: Acute Qualifiers: Back pain location: low back pain Chronicity: acute Back pain laterality : midline (3) Insomnia Status: Acute (4) Marijuana dependence Status: Acute (5) Nicotine dependence Status: Acute Qualifiers: Nicotine product type: cigarettes Substance use status: uncomplicated Qualified Code(s): F17.210 - Nicotine dependence, cigarettes, uncomplicated (6) Opioid dependence with withdrawal Status: Acute (7) Obesity (BMI 30.0-34.9) Status: Chronic - AMA Did Patient Leave Against Medical Advice: No
== END 2017-12-30 10:10 | disposition home or self-care (01) | DRG 773 ==
LOC: YASAS 15:52 → Y6N 20:26
PROVIDERS: ADMIT Internal Medicine; ATTEND Internal Medicine
PROC: HZ2ZZZZ Detoxification Services for Substance Abuse Treatment (ICD-10-PCS; principal; 2017-12-25)
DX: F11.23 Opioid dependence with withdrawal (principal); F12.20 Cannabis dependence, uncomplicated; F17.210 Nicotine dependence, cigarettes, uncomplicated; F41.9 Anxiety disorder, unspecified; G47.00 Insomnia, unspecified; R01.1 Cardiac murmur, unspecified; M54.5 Low back pain; E66.9 Obesity, unspecified; Z68.31 Body mass index [BMI] 31.0-31.9, adult; S01.311D Laceration without foreign body of right ear, subsequent encounter; X58.XXXA Exposure to other specified factors, initial encounter; Y93.89 Activity, other specified; Y92.89 Other specified places as the place of occurrence of the external cause; Y99.8 Other external cause status
CPT/HCPCS: 36415; 80053; 81003; 81015; 85027; 86593; 87389; 93005; 93010; J0735